=== PATIENT | male | born 1950 | race American Indian/Alaskan Native ===

== ENCOUNTER 2017-10-03 09:29 | Outpatient (CLI) | payer MEDICARE, OTHER ==
--- NOTE | 2017-10-03 10:11 | XRay Report ---
RIGHT KNEE RADIOGRAPHS INDICATION: Right knee pain. COMPARISON: None similar at this institution. FINDINGS: Standing AP, oblique and lateral right knee radiographs demonstrate osteopenia/osteoporosis. No suprapatellar effusion. Mild degenerative joint space narrowing possible, more so involving the patellofemoral and medial compartments. Few atherosclerotic vascular calcifications. CONCLUSION: No acute right knee radiographic abnormality with mild, age appropriate osteoarthritic changes suspected, as described. Please correlate. Thank you for the opportunity to participate in this patient's care.
== END 2017-10-03 09:30 | disposition home or self-care (01) ==
LOC: SPVIMAG 09:29
DX: M25.561 Pain in right knee (principal)

== ENCOUNTER 2018-04-17 11:16 | Outpatient (CLI) | payer MEDICARE, OTHER ==
--- NOTE | 2018-04-17 12:04 | XRay Report ---
XRAY RIGHT HIP TWO VIEWS: 04/17/18 11:16:00 CLINICAL: Right hip pain for one week. FINDINGS: Mild diffuse osteopenia. No fracture or dislocation. Moderate osteoarthritis of the right hip with mild joint space narrowing and acetabular eburnation. Small superior and inferior osteophytes. Similar but milder changes in the left hip. The pelvic bones are intact. The SI joints are normal. Fusion hardware in the lower lumbar spine. Normal soft tissues. IMPRESSION: Osteoarthritis
== END 2018-04-17 11:17 | disposition home or self-care (01) ==
LOC: SPVIMAG 11:16
DX: M16.11 Unilateral primary osteoarthritis, right hip (principal)